=== PATIENT | female | born 1955 | race Caucasian/White ===

== ENCOUNTER 2018-04-27 13:08 | Emergency (ER) | payer MEDICAID ==
[~2018-04-27] VITALS: Ht 165.1 cm; Wt 58.1 kg
[2018-04-27 13:16] VITALS: BP_SYST 126
--- NOTE | 2018-04-27 13:32 | NUR ---
Pt placed in [facility]
--- NOTE | 2018-04-27 13:33 | NUR ---
Pt states that she was getting her eyelashes removed and the lady cut her right eye with the eyelash. C/O pain, redness x2 days and today woke up with white "crusties". Denies visual changes.
--- NOTE | 2018-04-27 13:39 | NUR ---
ER Dr. Grant at bedside examining patient.
--- NOTE | 2018-04-27 13:48 | NUR ---
Patient given written and verbal discharge instructions and verbalizes understanding. ER MD discussed with patient the results and treatment provided. Patient in stable condition. ID arm band removed. Rx of tobramycin 0.3% drops, tylenol given. Patient educated on pain management and to follow up with PMD. Pain Scale 8/10, will use drops at home. Opportunity for questions provided and answered. Medication side effect fact sheet provided.
[2018-04-27 13:49] VITALS: BP_SYST 126
== END 2018-04-27 13:48 | disposition home or self-care (01) ==
LOC: SED 13:08
DX: S05.01XA Injury of conjunctiva and corneal abrasion without foreign body, right eye, initial encounter (principal); H10.9 Unspecified conjunctivitis; R03.0 Elevated blood-pressure reading, without diagnosis of hypertension; W50.4XXA Accidental scratch by another person, initial encounter; Y93.89 Activity, other specified; Y92.89 Other specified places as the place of occurrence of the external cause; Y99.8 Other external cause status
CPT/HCPCS: 99283

== ENCOUNTER 2019-02-07 14:05 | Emergency (ER) | payer MEDICAID ==
[~2019-02-07] VITALS: Ht 162.6 cm; Wt 57.6 kg
[2019-02-07 14:09] VITALS: BP_SYST 131
[2019-02-07] MEDS ORDERED: NACL 0.9% 1,000 ML IV ONE (14:30)
[2019-02-07] MEDS ORDERED: MORPHINE 4 MG/ML INJ. SYRINGE IVP ONE (14:30)
[2019-02-07 15:11] LABS: BILIRUBIN,URINE NEGATIVE (NEGATIVE); BLOOD, URINE 2+ (NEGATIVE); COLOR,URINE YELLOW (YELLOW); GLUCOSE,URINE NEGATIVE (NEGATIVE); KETONES,URINE NEGATIVE (NEGATIVE); LEUKOCYTE ESTERASE ,URINE 1+ (NEGATIVE); NITRITE, URINE POSITIVE (NEGATIVE); PROTEIN URINE NEGATIVE (NEGATIVE); UROBILINOGEN,URINE 0.2 (0.2-1.0)
[2019-02-07 15:19] LABS: CLARITY/URINE HAZY (CLEAR)
[2019-02-07 15:21] LABS: BACTERIA,URINE MANY /HPF (None Seen); MUCUS,URINE None Seen /LPF (None Seen); RBC,URINE 0-3 /HPF (0-3)
[2019-02-07 15:21] LABS: BASOPHILS % (AUTO) 0.7 % (0.0-2.0); EOSINOPHILS # (AUTO) 0.1 K/uL (0.0-0.4); HEMATOCRIT 39.7 % (36-48); HEMOGLOBIN 13.2 g/dL (12.0-16.0); LYMPHOCYTES # (AUTO) 2.7 K/uL (1.0-5.5); LYMPHOCYTES % (AUTO) 46.5 % (20.5-51.5); MEAN CORPUSCULAR HEMOGLOBIN 28 pg (27-31); MEAN CORPUSCULAR HGB CONC 33 % (32-36); MEAN CORPUSCULAR VOLUME 83 fL (79.0-98.0); MONOCYTES # (AUTO) 0.3 K/uL (0.0-1.0); MONOCYTES % (AUTO) 6.1 % (1.7-9.3); NEUTROPHILS # (AUTO) 2.6 K/uL (1.8-7.7); NEUTROPHILS % (AUTO) 45.7 % (40.0-70.0); PLATELET COUNT (AUTO) 245 K/uL (130-430); RED BLOOD CELL COUNT(AUTO) 4.77 MIL/uL (4.2-6.2); RED CELL DISTRIBUTION WIDTH 13.6 % (9.0-15.0); WHITE BLOOD COUNT (AUTO) 5.7 K/uL (4.8-10.8)
[2019-02-07 15:37] LABS: ALBUMIN 3.5 g/dL (3.4-4.8); CREATININE 0.6 mg/dL (0.55-1.30); TOTAL BILIRUBIN 0.3 mg/dL (0.0-1.0)
[2019-02-07] MEDS ORDERED: IOHEXOL 100 ML IV ONE (16:04)
[2019-02-07 16:38] LABS: CALCIUM 8.5 mg/dL (8.4-11.0)
[2019-02-07] MEDS ORDERED: cefTRIAXone 1 GM VIAL IM ONE (17:15)
[2019-02-07 17:36] VITALS: BP_SYST 124
== END 2019-02-07 17:36 | disposition home or self-care (01) ==
LOC: SED 14:05
DX: N39.0 Urinary tract infection, site not specified (principal); M54.5 Low back pain
CPT/HCPCS: 36415; 72132; 80053; 81000; 85025; 87086; 87186; 96372; 96374; 99284; J0696; J2270; J7030; Q9967

== ENCOUNTER 2019-06-02 13:48 | Emergency (ER) | payer MEDICAID ==
[~2019-06-02] VITALS: Ht 162.6 cm; Wt 56.7 kg
[2019-06-02 15:06] VITALS: BP_SYST 156
[2019-06-02] MEDS ORDERED: fentaNYL CITRATE/PF 100 MCG/2 ML AMP IM ONE (16:00)
[2019-06-02 16:12] LABS: BASOPHILS % (AUTO) 0.3 % (0.0-2.0); EOSINOPHILS % (AUTO) 0.1 % (0.0-4.0); HEMATOCRIT 42.6 % (36-48); HEMOGLOBIN 14.1 g/dL (12.0-16.0); LYMPHOCYTES # (AUTO) 2.2 K/uL (1.0-5.5); LYMPHOCYTES % (AUTO) 28.5 % (20.5-51.5); MEAN CORPUSCULAR HEMOGLOBIN 27 pg (27-31); MEAN CORPUSCULAR HGB CONC 33 % (32-36); MEAN CORPUSCULAR VOLUME 82 fL (79.0-98.0); MONOCYTES # (AUTO) 0.5 K/uL (0.0-1.0); NEUTROPHILS # (AUTO) 4.9 K/uL (1.8-7.7); NEUTROPHILS % (AUTO) 64.1 % (40.0-70.0); PLATELET COUNT (AUTO) 305 K/uL (130-430); RED BLOOD CELL COUNT(AUTO) 5.18 MIL/uL (4.2-6.2); RED CELL DISTRIBUTION WIDTH 13.3 % (9.0-15.0); WHITE BLOOD COUNT (AUTO) 7.7 K/uL (4.8-10.8)
[2019-06-02 17:24] VITALS: BP_SYST 132
== END 2019-06-02 17:25 | disposition home or self-care (01) ==
LOC: SED 13:48
DX: G89.29 Other chronic pain (principal); M54.5 Low back pain
CPT/HCPCS: 36415; 81002; 83605; 85025; 87040; 96372; 99283; J3010

== ENCOUNTER 2022-01-22 17:09 | Emergency (ER) | payer OTHER, MEDICAID ==
[~2022-01-22] VITALS: Ht 162.6 cm; Wt 56.7 kg
[2022-01-22 17:30] VITALS: BP_SYST 124
[2022-01-22 18:44] LABS: BILIRUBIN,URINE NEGATIVE (NEGATIVE); BLOOD, URINE 1+ (NEGATIVE); CLARITY/URINE CLEAR (CLEAR); COLOR,URINE YELLOW (YELLOW); GLUCOSE,URINE NEGATIVE (NEGATIVE); KETONES,URINE NEGATIVE (NEGATIVE); LEUKOCYTE ESTERASE ,URINE NEGATIVE (NEGATIVE); NITRITE, URINE NEGATIVE (NEGATIVE); PROTEIN URINE NEGATIVE (NEGATIVE); UROBILINOGEN,URINE 0.2 (0.2-1.0)
[2022-01-22 18:53] LABS: BACTERIA,URINE None Seen /HPF (None Seen); MUCUS,URINE None Seen /LPF (None Seen); RBC,URINE 0-3 /HPF (0-3); WBC,URINE NONE SEEN /HPF (0-3)
[2022-01-22 20:38] VITALS: BP_SYST 136
--- NOTE | 2022-01-22 21:07 | NUR ---
THEODORA Mcdonald at bedside examining patient.
[2022-01-22] MEDS ORDERED: NACL 0.9% 1,000 ML IV ONE (21:30)
[2022-01-22] MEDS ORDERED: KETOROLAC TROMETHAMINE 30 MG VIAL IVP ONE (21:30)
[2022-01-22] MEDS ORDERED: MORPHINE 4 MG INJ. 4 MG/ML VIAL IVP ONE (21:30)
[2022-01-22 22:00] LABS: BASOPHILS % (AUTO) 0.5 % (0.0-2.0); EOSINOPHILS # (AUTO) 0.1 K/uL (0.0-0.4); EOSINOPHILS % (AUTO) 1.7 % (0.0-4.0); HEMATOCRIT 42.6 % (36-48); LYMPHOCYTES # (AUTO) 3.1 K/uL (1.0-5.5); LYMPHOCYTES % (AUTO) 49.4 % (20.5-51.5); MEAN CORPUSCULAR VOLUME 83 fL (79.0-98.0); MONOCYTES # (AUTO) 0.5 K/uL (0.0-1.0); MONOCYTES % (AUTO) 7.9 % (1.7-9.3); NEUTROPHILS # (AUTO) 2.6 K/uL (1.8-7.7); NEUTROPHILS % (AUTO) 40.5 % (40.0-70.0); PLATELET COUNT (AUTO) 294 K/uL (130-430); RED BLOOD CELL COUNT(AUTO) 5.16 MIL/uL (4.2-6.2); RED CELL DISTRIBUTION WIDTH 13.4 % (9.0-15.0); WHITE BLOOD COUNT (AUTO) 6.3 K/uL (4.8-10.8)
[2022-01-22 22:35] LABS: ALBUMIN 3.5 g/dL (3.4-4.8); CALCIUM 9.1 mg/dL (8.4-11.0); CREATININE 0.63 mg/dL (0.55-1.30); POTASSIUM 3.7 mmol/L (3.5-5.1); TOTAL BILIRUBIN 0.2 mg/dL (0.0-1.0)
[2022-01-22 22:45] LABS: ERYTHROCYTE SEDIMENTATION RATE 5 MM/HR (0-20)
[2022-01-23] MEDS ORDERED: cefTRIAXone 1 GM in D5W 50 ML IV ONE (01:30)
[2022-01-23] MEDS ORDERED: CEFI400C2 PO (02:13)
[2022-01-23] MEDS ORDERED: PHEN-890 PO (02:13)
== END 2022-01-23 05:00 | disposition home or self-care (01) ==
LOC: SED 17:09
DX: R10.2 Pelvic and perineal pain (principal); Z79.899 Other long term (current) drug therapy
CPT/HCPCS: 99284; 74176; 96374; 96361; 96375; 80053; 81000; 83690; 85025; 85651; 36415; 76376; J1885; J2270; J7030